=== PATIENT | female | born 1975 | race Caucasian/White ===

== ENCOUNTER 2024-10-24 17:29 | Emergency (ER) | payer SELFPAY ==
[~2024-10-24] VITALS: Ht 160 cm; Wt 84.0 kg
[2024-10-24 17:32] VITALS: O2SAT 99
[2024-10-24 20:00] VITALS: BP 150/90; PULSE 97; RESP 21; TEMP 36.61404; O2SAT 97
[2024-10-24 20:16] LABS: BASOPHILS % 0.3 % (0.0-2.0); DIFFERENTIAL COMMENT 0; EOSINOPHILS % 0.8 % (0.0-5.0); HEMATOCRIT. 35.2 % (36.0-48.0); HEMOGLOBIN. 11.5 g/dL (12.0-16.0); MEAN CORPUSCULAR HEMOGLOBIN 26.1 pg (28.0-32.0); MEAN CORPUSCULAR HGB CONC 32.8 g/dL (31.0-37.0); MEAN CORPUSCULAR VOLUME 79.7 fL (81.0-99.0); MEAN PLATELET VOLUME 7.9 fl (7.4-10.4); MONOCYTES % 3.9 % (2.0-8.0); PLATELET 323 x1000/uL (130-400); RED BLOOD CELL COUNT 4.41 mill/uL (4.2-5.4); RED CELL DISTRIBUTION WIDTH 19.8 % (11.6-14.6); WHITE BLOOD COUNT 10.6 x1000/uL (4.5-11.0)
[2024-10-24 20:23] LABS: CHLORIDE 104 mEq/L (98-107); POTASSIUM 3.3 mEq/L (3.5-5.1)
[2024-10-24 20:24] LABS: CARBON DIOXIDE 27 mEq/L (21-32); SODIUM 137 mEq/L (136-145)
[2024-10-24 20:25] LABS: CALCIUM 8.8 mg/dL (8.7-10.4)
[2024-10-24 20:27] LABS: HCG SCREEN NEGATIVE
[2024-10-24 20:29] LABS: CREATININE 0.6 mg/dL (0.6-1.0); GLUCOSE 160 mg/dL (70-105)
[2024-10-24 20:30] LABS: ETHANOL BLOOD < 10 mg/dL (<10); UREA NITROGEN BLOOD 9 mg/dL (9-23)
[2024-10-24] MEDS ORDERED: POTASSIUM CHLORIDE 20MEQ TABLET SR PO ONE (20:45)
== END 2024-10-24 21:52 | disposition home or self-care (01) ==
LOC: ER 17:29
DX: G40.909 Epilepsy, unspecified, not intractable, without status epilepticus (principal); I10 Essential (primary) hypertension
CPT/HCPCS: 80048; 80320; 84703; 85025; 36415; 71045; 70450; 99284; A4663; G0480